=== PATIENT | female | born 1970 | race Caucasian/White ===

== ENCOUNTER 2020-04-14 00:39 | Outpatient (CLI) | payer BC, SELFPAY ==
[2020-04-15 03:00] LABS: SARS-CoV-2 RNA PCR Negative
== END 2020-04-14 00:40 | disposition home or self-care (01) ==
LOC: ANHCOVIDDT 00:39
PROVIDERS: PCP Internal Medicine; Visit Provider Internal Medicine Gastroenterology
DX: Z01.812 Encounter for preprocedural laboratory examination (principal); Z20.828 Contact with and (suspected) exposure to other viral communicable diseases
CPT/HCPCS: 87635; C9803; U0003

== ENCOUNTER 2020-04-16 02:14 | Day surgery (SDC) | payer BC, SELFPAY ==
[2020-04-09 15:17] VITALS: BMI 26.4
[2020-04-16] MEDS: LACTATED RINGERS 1,000 ML 150 ML IV CONT (07:47)
[2020-04-16 07:49] VITALS: BP 126/77; PULSE 65; RESP 16; TEMP 36.3; O2SAT 100; BMI 27.1
--- NOTE | 2020-04-16 07:52 | WPDANESEPPF ---
Anes - Initial Pre Proc Eval Procedure: Operation Date: 04/16/20 08:30 Proposed Procedures p Screening Colonoscopy - Cristobal Laguna MD Date/Time: 04/16/20 07:52 Surgeon: Cristobal Laguna MD Pre Op Diagnosis: neoplasm screening Patient Data Age: 50 Gender: F Height: 5 ft 5 in Weight: 74 kg Last Vital Signs Temp 36.3 C L 04/16/20 07:49 Pulse 65 04/16/20 07:49 Resp 16 04/16/20 07:49 BP 126/77 04/16/20 07:49 Pulse Ox 100 04/16/20 07:49 Allergies Allergy/AdvReac Type Severity Reaction Status Date / Time latex Allergy Unknown Rash Verified 04/16/20 07:25 Penicillins Allergy Unknown Unknown Verified 04/16/20 07:25 Home Medications Medication Instructions Recorded Confirmed Type fluticasone propionate 50 1 spray NASAL DAILY #15.8 ml 12/01/19 04/16/20 Rx mcg/actuation nasal spray,suspension naproxen 375 mg tablet 375 mg PO BID PRN #180 tablet 12/01/19 04/16/20 Rx oxybutynin chloride 5 mg 5 mg PO DAILY #90 tablet 12/01/19 04/16/20 Rx tablet,extended release 24 hr levothyroxine 88 mcg tablet See Rx Instructions .ROUTE 04/13/20 04/16/20 Rx .COMPLEX #90 tablet Patient hx anesthesia problems: none Family hx anesthesia problems: none PMFSH Past Medical History Medical History Endometriosis Hypothyroidism Left knee pain Surgical History Surgical History History of orthopedic surgery Family History Family History Mother Family history of thyroid disease Sibling Family history of type 2 diabetes mellitus Social History Social History Smoking status: Never smoker Alcohol intake: current Alcohol use details: 1 drink/month Substance use: never Substance use type: does not use Living arrangements: with family Gender identity (if verbalized by the patient): Female Anes - Eval Final PreProcedure Day of Procedure 04/16/20 07:52 Patient weight: normal Heart: regular rate and rhythm Lungs: clear to auscultation Airway: Mallampati scale class II Neurological: alert and oriented Last oral intake: >/= 8 hours ASA classification: II Emergent: no Anesthetic plan: proceed Anesthesia type and monitoring: general GIVS and standard monitoring Informed Consent: The patient's anesthetic plan and its attendant risks and benefits were discussed with the patient/family/POA. Questions were solicited and answers provided to the satisfaction of the patient/family/POA.
--- NOTE | 2020-04-16 08:21 | PM.HPGS ---
History of Present Illness History of Present Illness Consent: Risks, benefits, and alternatives have been discussed and questions answered. Patient agrees to proceed with procedure. Chief complaint: neoplasm screening Narrative: Delilah Colbert is a 50 year old female here for first screening colonoscopy. Review of Systems Constitutional: Constitutional: Denies headache(s) and Denies weakness Eyes: Eyes: Denies blurry vision ENT: Reports Normal hearing present, Denies headache(s) and Denies neck pain Cardiovascular: Cardiovascular: Denies chest pain and Denies dyspnea Respiratory: Respiratory: Denies dyspnea Gastrointestinal: Gastrointestinal: Reports no additional gastrointestinal complaints Genitourinary: Genitourinary: Denies dysuria Musculoskeletal: Musculoskeletal: Denies neck pain Integumentary/Breasts: Skin/Breast: Denies dry skin Neurologic: Reports Normal hearing present, Denies headache(s) and Denies weakness Psychiatric: Psychiatric: Denies anxiety Endocrine: Endocrine: Denies change in body appearance Hematologic/Lymphatic: Hematologic/Lymphatic: Denies easy bleeding Allergic/Immunologic: Allergic/Immunologic: Denies urticaria PMF Past Medical History Medical History (Updated 04/16/20 @ 08:21 by Cristobal Laguna MD) Colon cancer screening Endometriosis Hypothyroidism Left knee pain Surgical History Surgical History History of orthopedic surgery Family History Family History Mother Family history of thyroid disease Sibling Family history of type 2 diabetes mellitus Social History Social History Smoking status: Never smoker Alcohol intake: current Alcohol use details: 1 drink/month Substance use: never Substance use type: does not use Living arrangements: with family Gender identity (if verbalized by the patient): Female Meds Home Medications and Allergies Home Medications Medication Instructions Recorded Confirmed Type fluticasone propionate 50 1 spray NASAL DAILY #15.8 ml 12/01/19 04/16/20 Rx mcg/actuation nasal spray,suspension naproxen 375 mg tablet 375 mg PO BID PRN #180 tablet 12/01/19 04/16/20 Rx oxybutynin chloride 5 mg 5 mg PO DAILY #90 tablet 12/01/19 04/16/20 Rx tablet,extended release 24 hr levothyroxine 88 mcg tablet See Rx Instructions .ROUTE 04/13/20 04/16/20 Rx .COMPLEX #90 tablet Allergies Allergy/AdvReac Type Severity Reaction Status Date / Time latex Allergy Unknown Rash Verified 04/16/20 07:25 Penicillins Allergy Unknown Unknown Verified 04/16/20 07:25 Vital Signs Vital Signs - 24 hr 04/16/20 07:49 Temperature 97.4 F L Pulse Rate 65 Respiratory Rate 16 Blood Pressure 126/77 Pulse Oximetry 100 Exam Const: General: comfortable and no acute distress HENMT: General nose exam: Normal nares present Eyes: General: appearance normal, both eyes and all related structures Neck: Neck: no JVD Resp: Auscultation: clear to auscultation bilaterally Cardio: Rate: regular rate Rhythm: regular rhythm GI: Inspection: non-distended GI Palp: Yes Soft to palpation Skin: General skin exam: normal color Neuro: General: gait normal Speech: normal speech Extrem: General: normal to inspection Psych: Mental Status: mental status grossly normal Assessment and Plan Assessment and plan (1) Colon cancer screening: Code(s): Z12.11 - Encounter for screening for malignant neoplasm of colon Status: Acute Assessment and Plan: will proceed with colonoscopy
[2020-04-16 08:44] VITALS: BP 122/78; PULSE 74; RESP 16; O2SAT 100
[2020-04-16 08:54] VITALS: BP 126/73; PULSE 67; RESP 18; O2SAT 100
[2020-04-16 09:04] VITALS: BP 129/83; PULSE 67; RESP 18; O2SAT 100
== END 2020-04-16 09:25 | disposition home or self-care (01) ==
PROVIDERS: PCP Internal Medicine; Visit Provider Internal Medicine Gastroenterology
PROC: 0DJD8ZZ Inspection of Lower Intestinal Tract, Via Natural or Artificial Opening Endoscopic (ICD-10-PCS; CPT 45378; principal; 2020-04-16 08:30)
DX: Z12.11 Encounter for screening for malignant neoplasm of colon (principal); E03.9 Hypothyroidism, unspecified; K64.8 Other hemorrhoids
CPT/HCPCS: 45378; J2704; J7120

== ENCOUNTER 2021-08-30 17:12 | Emergency (ER) | payer OTHER, SELFPAY ==
--- NOTE | ~2021-08-30 | CT_ITS ---
EXAMINATION: CT abdomen pelvis w con EXAM DATE: 08/30/2021 19:38 INDICATION: Upper abdominal pain for 3 weeks nausea and vomiting. TECHNIQUE: Spiral CT of the abdomen and pelvis was performed following intravenous injection of 100 m L Omnipaque 350. Axial, coronal and sagittal images of the abdomen and pelvis were reviewed. The do se-length product (DLP) for this examination was 411.25 mGy-cm. The exposure was tailored according to patient size (auto mA exposure control), and iterative reconstruction (ASIR) was used as additiona l dose reduction technique. Comparison is made to prior examination from 05/10/2019. FINDINGS: Again there is hyperenhancing mass, could be an exophytic fibroid or possibly ovarian in or igin. This measures about 5 cm in size, appears essentially unchanged compared to 2019. There is also a hypodense cystic region in the cervix which could be a large nabothian cysts, but was not present or evidence on prior study, about 2.5 cm. Consider follow-up nonemergent pelvic sonogram if this has not been previously worked up. The liver, spleen, adrenal glands and pancreas are unremarkable. Gallbladder is unremarkable. No bi liary obstruction. Portal and splenic veins are patent. Kidneys enhance symmetrically. There is no hydronephrosis. The bladder is unremarkable. There is no retroperitoneal or pelvic lymphadenopath y. There are surgical changes consistent with appendectomy. There is small sliding gastroesophageal hi atal hernia. There is expected amount of colonic stool. No free intraperitoneal gas. The heart i s normal in size. There are no pericardial or pleural effusions. The lung bases are unremarkable. The bones are unremarkable. IMPRESSION: 1. No acute intra-abdominal findings. 2. Chronic mass right pelvis which could be an exophytic fibroid or less likely ovarian in origin. C ervical cystic region probably nabothian cyst. Follow-up nonemergent pelvic sonogram recommended. Reviewed, dictated and finalized at location G. IMPRESSION: 1. No acute intra-abdominal findings. 2. Chronic mass right pelvis which could be an exophytic fibroid or less likel y ovarian in origin. Cervical cystic region probably nabothian cyst. Follow-up nonemergent pelvic sonogram recommended.
[2021-08-30 17:16] VITALS: BP 149/98; PULSE 83; RESP 16; TEMP 36.6; O2SAT 100
--- NOTE | 2021-08-30 17:31 | ECG_ITS ---
Measurements Intervals Pace Rate: 69 P: 59 MA: 159 QRS: 54 QRSD: 93 T: 13 QT: 410 QTc: 440 Interpretive Statements SINUS RHYTHM NONSPECIFIC ST & T-WAVE ABNORMALITY NONDIAGNOSTIC INFERIOR Q-WAVES ABNORMAL ECG NO PREVIOUS ECG AVAILABLE FOR COMPARISON Electronically Signed On 08-31-2021 13:53:13 CDT by Enio Cade M.D.
--- NOTE | 2021-08-30 17:39 | ED.ABDPAIN ---
HPI - Abdominal Pain General Chief Complaint: Abdominal Pain Stated Complaint: Upper abd pain Time Seen by Provider: 08/30/21 17:19 Source: patient Mode of arrival: ambulatory Limitations: no limitations History of Present Illness HPI narrative: 51-year-old female presents today with complaints of upper abdominal pain, nausea, and vomiting for the last 3 weeks. Patient has seen her primary twice and followed up with GI. Plan for endoscopy in September. Patient saw her primary yesterday who told her to continue the Pepcid because she does not tolerate the PPIs well and added Zofran. Patient states she took Zofran today and her pain is worse. Patient describes the pain as like a knot in the stomach area. Patient states she has lost weight but unsure of how much in the last 3 weeks. Denies diarrhea, constipation, bloody stools, cough, runny nose, sore throat, or sick contacts. Related Data Home Medications Medication Instructions Recorded Confirmed cranberry [id number] coag 250 tablet PO 08/23/21 08/23/21 mg-30 mg-50 million cell tablet magnesium glycinate 100 mg tablet 300 mg PO DAILY tablet 08/23/21 08/23/21 Allergies Allergy/AdvReac Type Severity Reaction Status Date / Time latex Allergy Unknown Rash Verified 08/29/21 14:48 Penicillins Allergy Unknown Unknown Verified 08/29/21 14:48 Review of Systems Review of Systems: CONSTITUTIONAL: Denies fever, chills, or sweats. EYES: Denies visual changes, redness, or discharge. ENT: Denies rhinorrhea, congestion, sore throat, or otalgia. CARDIOVASCULAR: Denies chest pain, palpitations, or edema. RESPIRATORY: Denies cough or dyspnea. GASTROINTESTINAL: Abdominal pain, nausea, and vomiting, Denies diarrhea. GENITOURINARY: Denies dysuria or hematuria. SKIN: Denies rash or itching. MUSCULOSKELETAL: Denies back pain, joint pain, or myalgia. NEUROLOGIC: Denies headache, numbness, dizziness, or weakness. PSYCHIATRIC: Denies anxiety or depression. [facility] Past Medical History Medical History Colon cancer screening Encounter for screening for lipid disorder Endometriosis Hypothyroidism Left knee pain Screening for metabolic disorder Surgical History Surgical History History of orthopedic surgery Family History Family History Mother Family history of thyroid disease Sibling Family history of type 2 diabetes mellitus Social History Social History Alcohol intake: current Alcohol use details: 1 drink/month Substance use: never Substance use type: does not use Gender identity (if verbalized by the patient): Female Exam Const: General: no acute distress and alert Orientation/consciousness: patient oriented x3 HENMT: Head: normal to inspection Eyes: Pupils: Equal, round and reactive pupils present EOM: EOMs intact bilaterally Neck: Neck: normal visual inspection Chest: Chest palpation & inspection: normal inspection of the chest Resp: Effort & Inspection: normal respiratory effort Auscultation: clear to auscultation bilaterally Cardio: Rate: regular rate GI: GI Palp: Yes Tenderness to palpation present (GI) (Epigastric) Auscultation: normal bowel sounds : General: Yes no CVA tenderness Skin: General skin exam: normal color Neuro: General: patient oriented x3 and moves all extremities Extrem: General: normal to inspection Psych: Mental Status: mental status grossly normal Course Course Emergency Course: CT and labs reviewed with patient and . Patient currently feeling the best that she has in a long time. Patient to be discharged with dicyclomine and Compazine. Instructed to follow-up with primary or GI. Patient and in agreement with plan of care. Reevaluation(s) Reevaluation #1: Patient has noted
[2021-08-30 18:35] LABS: Basophils Percent Auto 0.4 % (0.2-1.2); Eosinophils Percent Auto 0.8 % (0-4.4); Hemoglobin 12.4 g/dL (12.0-15.0); Immature Granulocyte Absolute 0.01 K/mm3 (0.00-0.031); Immature Granulocyte Percent A 0.2 % (0-0.5); Lymphocytes Absolute Auto 1.39 K/mm3 (0.9-3.2); Lymphocytes Percent Auto 28.8 % (18.3-44.2); Mean Corpuscular HGB Conc 32.6 g/dl (32-36); Mean Corpuscular Hemoglobin 30.2 pg (26-34); Mean Corpuscular Volume 92.7 fl (80-100); Mean Platelet Volume 9.8 fl (7.4-10.4); Monocytes Absolute Auto 0.4 K/mm3 (0.1-0.6); Monocytes Percent Auto 8.1 % (2.6-8.5); Neutrophils Percent Auto 61.7 % (45.5-73.1); Platelet Count Result 170 k/mm3 (150-375); Red Cell Distribution Width 12.2 % (11.5-14.5); White Blood Count 4.8 K/mm3 (4.5-10.0)
[2021-08-30] MEDS: METOCLOPRAMIDE HCL INJ 10 MG/2 ML VIAL IV PUSH (18:39)
[2021-08-30] MEDS: DICYCLOMINE HCL INJ 20 MG/2 ML VIAL IM (18:39)
[2021-08-30] MEDS: LACTATED RINGERS 1,000 ML 999 ML IV CONT (18:40)
[2021-08-30] MEDS: diphenhydrAMINE HCl INJ 50 MG/ML VIAL 12.5 MG IV PUSH (18:40)
[2021-08-30 18:48] LABS: Add Urine Microscopic? YES; Alanine Aminotransferase 18 U/L (4-35); Albumin Level 3.7 g/dL (3.5-5.1); Alkaline Phosphatase 58 U/L (38-126); Anion Gap 7 mmol/L (8-16); Appearance Urine Clear (Clear); Aspartate Amino Transferase 25 U/L (14-36); Bacteria Urine Trace /hpf; Bilirubin Urine Negative (Negative); Bilirubin,Total 0.5 mg/dL (0.2-1.3); Blood Urea Nitrogen 8 mg/dL (7-17); Blood Urine 2+ (Negative); Calcium 8.5 mg/dL (8.4-10.2); Carbon Dioxide 26 mmol/L (22-30); Chloride 105 mmol/L (98-107); Color Urine Yellow (Yellow); Estimated CRCL calculation 84 ml/min; Estimated Glomerular Filt Rate > 60; Glucose 79 mg/dL (65-110); Glucose Urine UA Negative (Negative); Ketones Urine 1+ mg/dL (Negative); Leukocyte Esterase Ur 1+ LEU/UL (Negative); Lipase 76 U/L (23-300); Mucus Urine Rare /lpf; Nitrate Urine Negative (Negative); Potassium 3.5 mmol/L (3.4-5.0); Protein Urine Negative (Negative); RBC Urine 0-2 /hpf (0-2); Sodium 138 mmol/L (137-145); Specific Grav Ur 1.015 (1.001-1.035); Squamous Epithelial Cell Urine Occasional /hpf (Few); Urobilinogen Urine Negative mg/dL (<2.0)
[2021-08-30 18:56] LABS: Troponin I < 0.012 ng/mL (0.000-0.034)
--- NOTE | 2021-08-30 19:05 | PC.NURSE ---
ASSUMING CARE OF PT.
[2021-08-30 19:57] VITALS: BP 127/82; PULSE 70; RESP 18; O2SAT 100
[2021-08-30 20:38] VITALS: BP 124/65; PULSE 72; RESP 18; O2SAT 100
== END 2021-08-30 20:39 | disposition home or self-care (01) ==
PROVIDERS: Emergency Provider Nurse Practitioner Family; PCP Family Medicine
DX: R10.10 Upper abdominal pain, unspecified (principal); N80.9 Endometriosis, unspecified; E03.9 Hypothyroidism, unspecified; R94.31 Abnormal electrocardiogram [ECG] [EKG]; N94.9 Unspecified condition associated with female genital organs and menstrual cycle
CPT/HCPCS: 36415; 74177; 80053; 81001; 83690; 84484; 85025; 87077; 87086; 87147; 87181; 87186; 93005; 96361; 96372; 96374; 96375; 99284; J0500; J1200; J2765; J7120; Q9967

== ENCOUNTER 2022-07-19 08:15 | Outpatient (CLI) | payer OTHER, SELFPAY ==
[2022-07-19 20:39] LABS: Alanine Aminotransferase 22 U/L (6-35); Albumin Level 3.8 g/dL (3.5-5.1); Alkaline Phosphatase 71 U/L (38-126); Anion Gap 5 mmol/L (8-16); Aspartate Amino Transferase 32 U/L (14-36); Bilirubin,Total 0.5 mg/dL (0.2-1.3); Blood Urea Nitrogen 16 mg/dL (7-17); Calcium 8.4 mg/dL (8.4-10.2); Carbon Dioxide 28 mmol/L (22-30); Chloride 105 mmol/L (98-107); Cholesterol 158 mg/dL (0-200); Estimated Glomerular Filt Rate > 60; Glucose 90 mg/dL (65-110); HDL Direct 46 mg/dL; Potassium 4.5 mmol/L (3.4-5.0); Sodium 138 mmol/L (137-145); Triglycerides 80 mg/dL (<150)
[2022-07-19 20:50] LABS: LDL Cholesterol Direct 69 mg/dL
== END 2022-07-19 08:16 | disposition home or self-care (01) ==
LOC: ANHGOSHLAB 08:17
PROVIDERS: PCP Family Medicine; Visit Provider Family Medicine
DX: E03.9 Hypothyroidism, unspecified (principal); Z13.220 Encounter for screening for lipoid disorders; Z13.228 Encounter for screening for other metabolic disorders
CPT/HCPCS: 36415; 80053; 80061; 84443

== ENCOUNTER 2024-05-30 09:09 | Outpatient (CLI) | payer OTHER, SELFPAY ==
[2024-05-30 18:22] LABS: Alanine Aminotransferase 25 U/L (6-35); Albumin Level 4.1 g/dL (3.5-5.1); Alkaline Phosphatase 84 U/L (38-126); Anion Gap 3 mmol/L (4-12); Aspartate Amino Transferase 39 U/L (14-36); Bilirubin,Total 0.5 mg/dL (0.2-1.3); Blood Urea Nitrogen 15 mg/dL (7-17); Calcium 9.3 mg/dL (8.4-10.2); Carbon Dioxide 30 mmol/L (22-30); Chloride 106 mmol/L (98-107); Cholesterol 175 mg/dL (0-200); Estimated Glomerular Filt Rate > 60; Glucose 84 mg/dL (65-110); HDL Direct 45 mg/dL; Potassium 4.2 mmol/L (3.4-5.0); Sodium 139 mmol/L (137-145); Triglycerides 155 mg/dL (<150)
[2024-05-30 18:33] LABS: LDL Cholesterol Direct 70 mg/dL
[2024-05-30 18:38] LABS: Free T4 Free Thyroxine 1.48 ng/dL (0.78-2.19)
== END 2024-05-30 09:10 | disposition home or self-care (01) ==
LOC: ANHGOSHLAB 09:10
PROVIDERS: PCP Family Medicine; Visit Provider Family Medicine
DX: E03.9 Hypothyroidism, unspecified (principal); Z13.220 Encounter for screening for lipoid disorders; Z13.228 Encounter for screening for other metabolic disorders
CPT/HCPCS: 36415; 80053; 80061; 84439; 84443

== ENCOUNTER 2025-02-17 10:25 | Outpatient (CLI) | payer OTHER, SELFPAY ==
--- OUTSIDE RECORDS SUMMARY | 2025-02-17 12:02 | XMS_ITS | Clinical Summary ---
Author Organization [facility] [employer] Address [address] [place] [address] Care Team Providers Care Winding Inspector And Tester Name Role Phone Unavailable Primary Care Provider Unavailabl e Source Comments [facility] [employer],non-owned Affiliates and Associated Physician Practices is amultiple site organization consisting of ambulatory clinics and hospital sitesin [place], [place], [place]. This disclosure is being madepursuant to the Care Everywhere program and may not contain all information available regarding this patient. Last updated 18.[facility] [employer] Social History Tobacco Use Types Packs/Day Years Used Date Smoking Tobacco: Never Assessed Comments Unknown Sex and Gender Information Value Date Recorded Sex Assigned at Not on file Legal Sex Female 10:27 AM CDT Gender Identity Not on file Sexual Orientation Not on file Plan of Treatment Health Maintenance Due Date Last Done Comments COLOGUARD (AGES 45-75) - COL ON CA SCREENING 1969 COLON MONITORING 1969 COLONOSCOPY - COLON CA SCREENING 1969 CT COLONOGRAPHY - COLON CA SCREENING 1969 Colorectal Cancer Screening 1969 FIT - COLON CA SCREENING 1969 FLEX SIG - COLON CA SCREENING 1969 LIPID TESTING 1969 MAMMOGRAM 1969 HIV SCREENING 02/03/1984 HEPATITIS C SCREENING 01/29/1987 DTAP/TDAP/TD VACCINES (1 - Tdap) 02/03/1988 HEPATITIS B VACCINE (1 of 3 - 19+ 3-dose series) 02/03/1988 PNEUMOCOCCAL VACCINE 50+ (1 of 1 - PCV) 2019 ZOSTER VACCINE (1 of 2) 2019 DEPRESSION SCREENING 06/11/2024 COVID-19 VACCINE (1 - 2023-2 5 season) 2025 INFLUENZA VACCINE (#1) 2025 HIB VACCINE Aged Out No longer eligi ble based on patient's age to complete this topic HPV VACCINE Aged Out No longer eligi ble based on patient's age to complete this topic MENINGOCOCCAL (Group B) VACC INE SHARED DECISION-MAKING Aged Out No longer eligibl e based on patient's age to complete this topic MENINGOCOCCAL GROUPS A/C/Y/W VACCINE Aged Out No longer eligible b ased on patient's age to complete this topic Insurance
--- OUTSIDE RECORDS SUMMARY | 2025-02-17 12:02 | XMS_ITS | Clinical Summary ---
Author Organization [facility] Address [address] [place] [address] Care Team Providers Care Mixing Machine Attendant Name Role Phone Naty Burciaga Primary Care Provider [phone] Tom Trujillo MD Unavailable [phone] Allergies Active Allergy Reactions Criticality Noted Date Comments Latex Rash Medium 12/23/2022 Penicillins Rash Medium Medications Gemtesa 75 mg tablet Take 75 mg by mouth nightly 3 Active famotidine (PEPCID) 20 mg tablet Take 1 tablet (20 mg total) by mouth nightly Active methocarbamoL (ROBAXIN) 500 mg tablet Take 1 tablet (500 mg total) by mouth nightly as needed for muscle spasms 30 tablet 3 Active amLODIPine (NORVASC) 5 mg tablet 4 Active Synthroid 112 mcg tablet Take 1 tablet (112 mcg total) by mouth [facility] before breakfast 4 Active naproxen (NAPROSYN) 500 mg tablet Take 1 tablet (500 mg total) by mouth 2 (two) times a day with meals 60 tablet 5 Active ondansetron (ZOFRAN) 4 mg tablet Take 1 tablet (4 mg total) by mouth every 6 (six) hours as needed for nausea or vomiting 15 tablet 5 Active cranberry 500 mg capsule Take 1 tablet by mouth daily Active oxyCODONE-acetamin ophen (PERCOCET) 5-325 mg per tabletIndications: Pain Take 1-2 tablets by mouth every 6 (six) hours as needed for pain 8 tablet 5 Active ondansetron ODT (ZOFRAN-ODT) 4 mg disintegrating tablet Take 1 tablet (4 mg total) by mouth every 8 (eight) hours as needed for nausea or vomiting 20 tablet 5 Active Active Problems Problem Noted Date Diagnosed Date Right upper quadrant pain 11/06/2024 Assessment & Plan (11/06/2024 4:45 PM CDT): Reports that she began experiencing right upper quadrant discomfort roughly 3 weeks ago. She states that she has constant dull ache in her right upper quadrant that can intensify to a stabbing sensation. States that pain that intense will last roughly 10 sec. Reports that this can happen multiple times throughout the day. Food does not seem to be a trigger. Reports that she has constant abdominal bloating as well as increased belching. No reports of nausea, reflux. Was recently seen in the ED regarding these complaints in which a CT scan was unremarkable. A right upper quadrant ultrasound was completed however results are not available to me at this time. 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 Hypothyroidism 04/16/2013 Overview (09/15/2016): HYPOTHYROIDISM NOS Elevated rheumatoid factor 04/16/2013 Overview (09/15/2016): Rheumatoid factor positive Encounters Date Type Department Care Team Description 12/30/2024 1:30 PM CDT - 12/30/2024 3:15 PM CDT Surgery [facility] [place] [address] [place] [id number] Tom Trujillo MD ROBOTIC ASSISTED LAPAROSCOPIC CHOLECYSTECTOMY WITH INDOCYANINE GREEN 12/30/2024 1:09 PM CDT Anesthesia Event [facility] [place] [address] [place] [phone] Zach Niño DO 12/30/2024 11:25 AM CDT - 12/30/2024 5:30 PM CDT Hospital Encounter [facility] [place] [address] [place] [phone] Tom Trujillo MD Gallbladder sludge Discharge Disposition: Discharge to home or self care 11/25/2024 Orders Only [facility] Gastroenterology at [address] [place] [phone] Toma Rodriguez NP Calculus of gallbladder with cholecystitis without biliary obstruction, unspecified cholecystitis acuity (Primary Dx); Cholecystitis 11/24/2024 Orders Only [facility] Gastroenterology at [address] [place] [phone] Toma Rodriguez NP 11/20/2024 8:44 AM CDT - 11/20/2024 11:59 PM CDT Hospital Encounter [facility] Nuclear Medicine [address] [place] [address] Discharge Disposition: Discharge to home or self care 11/20/2024 8:44 AM CDT - 11/20/2024 11:59 PM CDT Hospital Encounter [facility] Nuclear Medicine [address] [place] [address] Discharge Disposition: Discharge to home or self care 11/20/2024 8:44 AM CDT - 11/20/2024 11:59 PM CDT Hospital Encounter [facility] Nuclear Medicine [address] [place] [address] Right upper quadrant pain Discharge Disposition: Discharge to home or self care from Last 3 Months Surgical History Surgery Date Site/Laterality Comments APPENDECTOMY KNEE ARTHROSCOPY 06/11/2005 - 06/10/2006 Left FOOT SURGERY 06/11/2016 - 06/10/2017 Right bunion surgery FLUORO GUIDED INJECTION SHOULDER LEFT 02/20/2024 Left LAPAROSCOPIC ENDOMETRIOSIS FULGURATION Medical History Medical History Date Comments GERD (gastroesophageal reflux disease) Gastric reflux DDD (degenerative disc disease), cervical Primary osteoarthritis, left shoulder Retrolisthesis of cervical v ertebrae, minimal C5 on C6 02/05/2023 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 Hypothyroidism 04/16/2013 HYPOTHYROIDISM N OS PONV (postoperative nausea and vomiting) Motion sickness Hypertension Overactive bladder Family History Medical History Relation Name Comments Cancer Cousin Cancer; Allergies Mother Allergies; Other Mother Vasculitis; Cancer Mother's Sister Cancer; Diabetes Sister Diabetes mellit us; Relation Name Status Comments Cousin Mother Mother's Sister Sister Social History Tobacco Use Types Packs/Day Years Used Date Smoking Tobacco: Never Smokeless Tobacco: Never Tobacco Cessation:Counseling Given: Not Answered Alcohol Use Standard Drinks/Week Comments Yes 0 (1 standard drink = 0.6 oz pur e alcohol) AUDIT-C Answer Date Recorded Q1: How often do you have a drink containing alc ohol? Monthly or less 12/30/2024 Q2: How many drinks containi ng alcohol do you have on a typical day when you are drinking? 1 or 2 12/30/2024 Q3: How often do you have si x or more drinks on one occasion? Never 12/30/2024 Personal Safety Answer Date Recorded Have you ever been in or are you currently in a harmful physical or emotional relationship or is someone making you feel afraid or unsafe? 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 Not on file Not on file Not on file Obstetrics History Last Filed Vital Signs Vital Sign Reading Time Taken Comments Blood Pressure 101/75 12/30/2024 4:20 PM CDT Pulse 62 12/30/2024 4:20 PM CDT Temperature 36.6 C (97.9 F) 12/30/2024 4:20 PM CDT Respiratory Rate 15 12/30/2024 4:20 PM CDT Oxygen Saturation 96% 12/30/2024 4:20 PM CDT Inhaled Oxygen Concentration - - Weight 73.2 kg (161 lb 4.8 oz) 12/30/2024 11:33 AM CDT Height 165.1 cm (5' 5) 12/30/2024 11:33 AM CDT Body Mass Index 26.84 12/30/2024 11:33 AM CDT Plan of Treatment Health Maintenance Due Date Last Done Comments Breast Cancer Screening-Mammogram 1970 Cervical Cancer Screening 1969 Colon Cancer Screening-Colonoscopy 1969 Depression Screening 1969 Hepatitis C Screening 1969 DTaP/Tdap/Td Vaccine (1 - Tdap) 02/03/1980 Hepatitis B Screening 1987 Regular Well Visit/Exam 18-64 1987 Zoster Vaccine (1 of 2) 2019 Covid-19 Vaccine (3 - 2024-2 6 season) 2025 12/23/2020, 12/02/2020 Influenza Vaccine (#1) 2025 , 03/23/2018 Pneumococcal vaccine <65 Aged Out No longer eligible based on patient's age to complete this topic Procedures Procedure Name Priority Date/Time Associated Diagnosis Comments SURGICAL PATHOLOGY Routine 12/30/2024 1: 53 PM CDT Gallbladder sludge TX AN PROCEDURE PLACEHOLDER Routine 12/30/2024 1:26 PM CDT TX AN ELECTIVE ENDOTRACHEAL AIRWAY Routine 12/30/2024 1:26 PM CDT XI CHOLECYSTECTOMY, MULTIPORT - LAPAROSCOPIC ROBOTIC 12/30/2024 1:09 PM CDT CHOLELITHIASIS ECG 12-LEAD Routine 12/30/2024 12:02 PM CDT NM HEPATOBILIARY IMAGING W PHARMACEUTICAL INTERVENTION Schedule Routine, Read Routine (OP Routine) 11/20/2024 12:03 PM CDT Right upper quadrant pain from Last 3 Months Results * Surgical pathology (12/30/2024 1:53 PM CDT) Tissue (Gallbladder) 12/30/2024 1:53 PM CDT Narrative PATHOLOGY [facility] - 01/01/2025 6:24 PM CDT [facility] Department of Pathology [address] [place] [address] Note to Patients: This report may contain a detailed description of human tissue sent by a health care provider to the laboratory for pathologic evaluation. The content of this report is essential for diagnosis and may provide important critical findings. This information may be unfamiliar to patients to review without a medical professional present. It is advised that the patient review this report in the presence of a health care provider who can answer questions and explain the details. Final Report Patient Name: ANA GARCÍA : 1970 (Age: 54) Gender: F Address: [address] [place] [address] Hospital #: [id number] Service: Surgery Location: Patient Type: [facility] Taken: 12/30/2024 Received: 12/30/2024 Accessioned: 12/30/2024 Reported: 01/01/2025 Physician(s): Toy Richmond DO Diagnosis: Gallbladder, cholecystectomy - Mild chronic cholecystitis - One reactive lymph node Nilo Blue MD Report Electronically Reviewed and Signed Out By Nilo Blue MD 01/01/2025 18:24:40 Specimen(s) Received: A: Gallbladder Microscopic Description: Unless gross-only is specified, the final diagnosis for each specimen is based on a microscopic examination of each tissue sample. [id number] Distribution Clinical History: The patient is a 54-year-old woman with cholelithiasis and gallbladder sludge. Operative procedure: Robotic assisted laparoscopic cholecystectomy. Gross Description Received in formalin, labeled with the patient s identifiers and gallbladder and consists of a 9.0 x 3.0 x 2.8 cm intact gallbladder. The serosal surface is smooth, glistening, and green-tinged with no perforations or exudate grossly identified. The clipped cystic duct measures 0.5 cm in diameter and is inked black. Opening reveals green-yellow, viscous bile and no stones are identified in the lumen or in the specimen container. The mucosal surface is velvety, dark-green and bile stained. The wall thickness averages 0.2 cm. Language Pathologist sections are submitted. Labeled A1[facility]ensia [facility]12/31/2024 10:39 TED [place] Microscopic slide review and interpretation for this case was performed at [facility], Department of Surgical Pathology, [address] [facility] [place] [address], [place] [id number] [place] # [id number] us Tom Trujillo MD LAB PATHOLOGY ORDERABLES Fin al Result PATHOLOGY [facility] * TX AN ELECTIVE ENDOTRACHEAL AIRWAY, TX AN PROCEDURE PLACEHOLDER (12/30/2024 1:26 PM CDT) Narrative Latoya Irene CRNA - 12/30/2024 1:26 PM CDT Latoya Irene CRNA 12/30/2024 1:27 PM Airway Patient location: OR Urgency: elective Indications for airway management: anesthesia Difficult airway: no Staff: Placed by: BOOM CRANE OPERATOR: Latoya Irene CRNA Emergent airway documentation: Risks and benefits discussed: yes Consent obtained: yes Consent given by: patient Airway prep: Preoxygenated: yes Patient position: sniffing Mask difficulty assessment: 2 - vent by mask + OA or adjuvant Spontaneous ventilation during airway: absent Sedation level during airway: deep Final airway details: Final airway type: endotracheal airway Tube type: ETT ETT size: 7.0 mm Cuffed: yes Technique used for successful ETT placement: direct laryngoscopy Devices/Methods used in placement: intubating stylet Insertion site: oral Blade type: Cindy Blade size: 3 Cormack-Lehane (direct): grade I - full view of glottis Cuff volume: 6 mL Cuff inflated with: air ETT to teeth: 20 cm Placement verified by: auscultation and CO2 detection Airway secured with: silk tape Number of attempts: 1 us Zach Niño DO ANESTHESIA ORDERABLES Final R esult * ECG 12 lead (12/30/2024 12:02 PM CDT) Ventricular Rate EKG/Min 72 BPM [facility] Atrial Rate 72 BPM [facility] TX-Interval (MSEC) 152 ms [facility] QRS-Interval (MSEC) 80 ms [facility] QT-Interval (MSEC) 400 ms [facility] QTc 438 ms [facility] P Wishon 62 degrees [facility] R Wishon 55 degrees [facility] T Wishon 21 degrees [facility] Diagnosis Normal sinus rhythm T wave abnormality, consider anterior ischemia Abnormal ECG When compared with ECG of 24-DEC-2022 10:00, T wave inversion now evident in Anterior leads Confirmed by SOFÍA HERNANDES M.D. ([id number]) on 12/31/2024 6:37:32 AM [facility] 12/30/2024 12:0 2 PM CDT 12/31/2024 6:37 AM CDT us Perry Pimentel MD ECG ORDERABLES Final Result [facility] * NM Hepatobiliary Imaging W GBEF (11/20/2024 12:03 PM CDT) Anatomical Region Laterality Modality Body N/A Nuclear Medicine 11/20/2024 12:2 2 PM CDT Narrative 11/20/2024 12:23 PM CDT EXAM DESCRIPTION: NM HEPATOBILIARY IMAGING W PHARMACEUTICAL INTERVENTION REASON FOR STUDY: Cholelithiasis, right upper quadrant pain for 1.5 months with bloating. RADIOPHARMACEUTICAL: 5 mCi Tc-99m mebrofenin via a right hand IV site and 8 oz Ensure Plus or equivalent p.o. COMPARISON: Right upper quadrant ultrasound 10/30/2024. TECHNIQUE: Following the intravenous administration of the radiopharmaceutical, sequential abdominal images were obtained. A region of interest was drawn around the gallbladder with an ejection fraction calculated. FINDINGS: There is prompt, homogenous tracer localization throughout the liver. There is normal visualization of the intrahepatic ducts, common bile duct, and gallbladder. There is normal biliary to bowel transit. Following the oral administration of Ensure Plus, the gallbladder ejection fraction was calculated and was 22 % (normal: greater than 40%, equivocal: 30-40%, and abnormal: less than 30%). IMPRESSION: 1. No evidence of cystic duct obstruction. 2. Low gallbladder ejection fraction, differential diagnosis includes biliary dyskinesia and chronic cholecystitis. THIS IS AN ELECTRONICALLY VERIFIED FINAL REPORT 11/20/2024 12:23 PM - Electronically signed by Adis Youssef M.D. CH T: Report ID: [id number] Reading Location: [id number] Procedure Note Adis Youssef Jr., MD - 11/20/2024 EXAM DESCRIPTION: NM HEPATOBILIARY IMAGING W PHARMACEUTICAL INTERVENTION REASON FOR STUDY: Cholelithiasis, right upper quadrant pain for 1.5 months with bloating. RADIOPHARMACEUTICAL: 5 mCi Tc-99m mebrofenin via a right hand IV siteand 8 oz Ensure Plus or equivalent p.o. COMPARISON: Right upper quadrant ultrasound 10/30/2024. TECHNIQUE: Following the intravenous administration of the radiopharmaceutical, sequential abdominal images were obtained. A regionof interest was drawn around the gallbladder with an ejection fraction calculated. FINDINGS: There is prompt, homogenous tracer localization throughout the liver. There is normal visualization of the intrahepatic ducts, commonbile duct, and gallbladder. There is normal biliary to bowel transit. Following the oral administration of Ensure Plus, the gallbladder ejection fraction was calculated and was 22 % (normal: greater than 40%,equivocal: 30-40%, and abnormal: less than 30%). IMPRESSION: 1. No evidence of cystic duct obstruction. 2. Low gallbladder ejection fraction, differential diagnosis includes biliary dyskinesia and chronic cholecystitis. THIS IS AN ELECTRONICALLY VERIFIED FINAL REPORT 11/20/2024 12:23 PM - Electronically signed by Adis Youssef M.D. T: Report ID: [id number] Reading Location: [id number] Toma Rodriguez NP [facility] [place] PROCEDURES Final Resu lt from Last 3 Months Insurance [facility] AETNA SIGNATURE [facility] [employer] SIGNATURE Advance Directives For more information, please contact: [phone] * Full Code (Latest Code Status on File) Date Activated Date Inactivated Comments 12/23/2022 9:24 PM 12/24/2022 6:18 PM Care Teams Mixing Machine Attendant Relationship Specialty Start Date End Date Naty Burciaga DO [address] [facility] [address] [place] [address] PCP - General Family Medicine 12/17/24 Tom Trujillo MD [facility] [address] Consulting Physician General Surgery 12/30/24
--- OUTSIDE RECORDS SUMMARY | 2025-02-17 12:02 | XMS_ITS | Clinical Summary ---
Author Organization [facility] Address [address] [place] [address] Care Team Providers Care Leasing Agent Name Role Phone Kuldip Caceres MD Primary Care Provider [phone] Allergies Active Allergy Reactions Criticality Noted Date Comments Latex Rash Low 09/24/2018 Penicillins Unknown 09/24/2018 Medications fluticasone propionate (FLONASE) 50 MCG/ACT nasal spray 1 spray by Nasal route daily. 18.2 mL 09/24/2018 Active Social History Tobacco Use Types Packs/Day Years Used Date Smoking Tobacco: Never Smokeless Tobacco: Never Alcohol Use Standard Drinks/Week Comments Yes 0 (1 standard drink = 0.6 oz pur e alcohol) socially Comments No Sex and Gender Information Value Date Recorded Sex Assigned at Not on file Legal Sex Female 4:27 PM CDT Gender Identity Not on file Sexual Orientation Not on file Last Filed Vital Signs Vital Sign Reading Time Taken Comments Blood Pressure 160/105 09/24/2018 4:30 PM CDT Pulse 84 09/24/2018 4:30 PM CDT Temperature 36.3 C (97.4 F) 09/24/2018 4:30 PM CDT Respiratory Rate 16 09/24/2018 4:30 PM CDT Oxygen Saturation 99% 09/24/2018 4:30 PM CDT Inhaled Oxygen Concentration - - Weight 71.9 kg (158 lb 9.6 oz) 09/24/2018 4:30 P M CDT Height 165.1 cm (5' 5) 09/24/2018 4:30 PM CDT Body Mass Index 26.39 09/24/2018 4:30 PM CDT Plan of Treatment Health Maintenance Due Date Last Done Comments Cervical Cancer Screening Pa p Smear (Age 30 to 64) Every 3 Years 1969 Colorectal Cancer Screening Colonoscopy (10 Years) 1969 Annual Physical 02/03/1972 Hepatitis C 1987 DTaP, Tdap and Td Vaccines ( 1 - Tdap) 02/03/1988 Hepatitis B Vaccines (1 of 3 - 19+ 3-dose series) 02/03/1988 Cervical Cancer Screening Pa p with HPV Testing (Age 30 to 64) Every 5 Years 1999 Cervical Cancer Screening with HPV 1999 Mammogram Screening 2009 Pneumococcal Vaccine: 50+ Ye ars (1 of 1 - PCV) 2019 Zoster Vaccines (1 of 2) 2019 COVID-19 Vaccine (1 - 2023-2 5 season) 2025 Meningococcal B Vaccine Aged Out No l onger eligible based on patient's age to complete this topic Meningococcal Vaccine Aged Out No ye juancarlos eligible based on patient's age to complete this topic RSV Immunizations Under 20 Months Aged Out No longer eligible based on patient's age to complete this topic Insurance Care Teams Leasing Agent Relationship Specialty Start Date End Date Kuldip Caceres MD [address] [place] [address] PCP - General INTERNAL MEDICINE 09/24/18
--- OUTSIDE RECORDS SUMMARY | 2025-02-17 12:02 | XMS_ITS | Encounter Summary ---
Author Organization [facility] Address [address] [place], [place] [address] [address] Care Team Providers Care Structural Steel Worker Apprentice Name Role Phone Unavailable Primary Care Provider Unavailabl e Encounter Details Date Type Department Care Team (Late st Contact Info) Description 10/14/2018 Lab Requisition [facility] Care DermPath Lab [address] [facility] [place] [address] Mita Sage MD [address] [facility] [address] [place] [address] Social History Tobacco Use Types Packs/Day Years Used Date Smoking Tobacco: Never Assessed Comments Unknown Sex and Gender Information Value Date Recorded Sex Assigned at Not on file Legal Sex Female 10:27 AM CDT Gender Identity Not on file Sexual Orientation Not on file documented as of this encounter Plan of Treatment Not on file documented as of this encounter Procedures Procedure Name Priority Date/Time Associated Diagnosis Comments DERMATOPATHOLOGY Routine 10/11/2018 12:0 0 AM CDT documented in this encounter Results * DERMATOPATHOLOGY (10/11/2018 12:00 AM CDT) Case Report Dermatopathology Report Case: [id number] Authorizing Provider: Mita Sage MD Collected: 10/11/2018 12:00 AM Pathologist: Darshana Vargas MD Received: 10/14/2018 06:56 AM Specimen: Skin, left lat thigh 9 4:10 PM CDT DERMATOPATHOLOGY LABORATORY Final Diagnosis Specimen A. SKIN, left lat thigh: BENIGN VERRUCOUS KERATOSIS, INFLAMED (L82.1) PRESENT AT MARGIN 9 4:10 PM CDT DERMATOPATHOLOGY LABORATORY at 1610 CDT Clinical History R/O SCC, irritated, non-healing. Check margins. 4:10 PM T DERMATOPATHOLOGY LABORATORY Gross Description Specimen A: Received is one formalin filled container labeled with the patient's name and designated left lat thigh. The specimen consists of a shave measuring [id number]. The margin is inked green. Jar 0. 4:10 PM CDT DERMATOPATHOLOGY LABORATORY Microscopic Description Specimen A. SKIN, left lat thigh: Sections show hyperkeratosis, papillomatosis, hypergranulosis, and acanthosis. Inflammatory cells are present within the dermis. These histological findings can be seen in a verruca vulgaris or a seborrheic keratosis. This lesion is present at the margin of the specimen. 4:10 PM T DERMATOPATHOLOGY LABORATORY Disclaimer An external and internal positive and negative controls are appropriate for the histochemical, immunohistochemical and immunofluorescence stain(s) in this case (if any), except where stated explicitly. The performance characteristics of the stain(s) cited in this report were developed and its performance characteristic determined by the Dermatopathology Laboratory at [facility], directed by Dr. Shana Vargas. These tests need not be, and therefore are not, approved by the [place] Food and Drug Administration. The tests are used for clinical purposes. Billing Codes Specimen Charges Stain Charges 60730 1 4:10 PM CDT DERMATOPATHOLOGY LABORATORY Embedded Images 4:10 PM CDT DERMATOPATHOLOGY LABORATORY Pathology/Cytolog y TISSUE SPECIMEN FROM SKIN / Unknown 10/11/2018 10/14/2018 6:56 AM CDT Mita Sage MD LAB - PATHOLOGY/CYTOLOGY OR DERABLES Final Result DERMATOPATHOLOGY LABORATORY [facility] - Department of Dermatology [address] [place] [address], 5th [place] [address], [facility] [phone] documented in this encounter Visit Diagnoses Not on filedocumented in this encounter
[2025-02-17 13:11] LABS: Hematocrit 41.9 % (37.0-47.0); Hemoglobin 13.5 g/dL (12.0-15.0); Mean Corpuscular HGB Conc 32.2 g/dl (32-36); Mean Corpuscular Hemoglobin 28.8 pg (26-34); Mean Corpuscular Volume 89.5 fl (80-100); Platelet Count Result 222 k/mm3 (150-375); Red Blood Count 4.68 M/mm3 (4.2-5.4); White Blood Count 5.0 K/mm3 (4.5-10.0)
[2025-02-17 13:18] LABS: Alanine Aminotransferase 27 U/L (6-35); Albumin Level 4.1 g/dL (3.5-5.1); Alkaline Phosphatase 88 U/L (38-126); Anion Gap 5 mmol/L (4-12); Aspartate Amino Transferase 62 U/L (14-36); Bilirubin,Total 0.5 mg/dL (0.2-1.3); Blood Urea Nitrogen 10 mg/dL (7-17); Calcium 9.1 mg/dL (8.4-10.2); Carbon Dioxide 30 mmol/L (22-30); Chloride 105 mmol/L (98-107); Cholesterol 153 mg/dL (0-200); Estimated Glomerular Filt Rate > 60; Glucose 100 mg/dL (65-110); HDL Direct 44 mg/dL; Potassium 3.9 mmol/L (3.4-5.0); Sodium 140 mmol/L (137-145); Total Protein 6.9 g/dL (6.3-8.2); Triglycerides 100 mg/dL (<150)
[2025-02-17 13:32] LABS: Free T4 Free Thyroxine 1.43 ng/dL (0.78-2.19)
[2025-02-17 13:53] LABS: Thyroid Stimulating Hormone 0.499 uIU/mL (0.465-4.680)
== END 2025-02-17 10:26 | disposition home or self-care (01) ==
LOC: ANHGOSHLAB 10:26
PROVIDERS: PCP Family Medicine; Visit Provider Family Medicine
DX: E03.9 Hypothyroidism, unspecified (principal); E66.3 Overweight; Z79.899 Other long term (current) drug therapy
CPT/HCPCS: 36415; 80053; 80061; 84439; 84443; 85027

== ENCOUNTER 2025-03-19 07:50 | Outpatient (CLI) | payer OTHER, SELFPAY ==
--- NOTE | 2025-04-07 14:31 | WPDHOMESLEEP ---
Sleep Study - Home Unattended Date of Study: 03/19/25 Ordering Provider: Naty Burciaga DO Interpreting Provider: Kait Lemus DO Home Sleep Study Type: Watch PAT Height: 1.65 m Weight: 72.575 kg Body Mass Index: 26.6 Neck Circumference (inches): 13.5 [place]: 15 Reason for Sleep Study Daytime hypersomnia Sleep History The patient did not complete the sleep history forms. [facility] Past Medical History Medical History Encounter for screening for lipid disorder Screening for metabolic disorder Colon cancer screening Left knee pain Endometriosis Hypothyroidism Surgical History Surgical History History of orthopedic surgery Family History Family History Mother Family history of thyroid disease Sibling Family history of type 2 diabetes mellitus Social History Social History Smoking status: Never smoker Alcohol intake: current Alcohol use details: 1 drink/month Substance use: never Substance use type: does not use Lack of Transportation: No Lack of Food: Never True Current Housing: I Have Housing Concerned About Future Housing: No Difficulty Paying Gas/Electric Bills: No Difficulty Paying for Meds: No Currently Unemployed: No Education: Bachelor's Degree Difficulty w/ Childcare or Family Care: No Living arrangements: with family Gender identity (if verbalized by the patient): Female Medications Home Medications ?Medication ?Instructions ?Recorded ?Confirmed ?Type cranberry [id number] tablet PO 08/23/21 02/17/25 History coagulans 250 mg-30 mg-15 mg tablet (Azo Cranberry Plus Probiotic) famotidine 20 mg tablet 20 mg PO DAILY 07/27/22 02/17/25 History naproxen 375 mg tablet 375 mg PO BID PRN pain #60 tabs 07/27/22 02/17/25 Rx methocarbamol 500 mg tablet 500 mg PO QHS PRN muscle spasm #30 11/25/24 02/17/25 Rx tabs mirabegron 25 mg tablet,extended 25 mg PO DAILY #90 tabs 11/25/24 02/17/25 Rx release 24 hr (Myrbetriq) levothyroxine 112 mcg tablet 112 mcg PO DAILY #90 tabs 02/16/25 02/17/25 Rx lisinopril 10 mg tablet 10 mg PO DAILY #90 tabs 02/17/25 02/17/25 Rx Sleep Procedure The sleep study was completed using [employer] a technically adequate device with seven channels: peripheral arterial tone, actigraphy, body position, snore, respiratory movement, pulse oximetry, sleep staging, and heart rate. Prior to using the device, the patient received verbal and written instructions for its application and was provided with the help desk phone number for additional telephonic instruction with 24-hour availability of qualified personnel to answer questions. The study was scored using CMS guidelines. Sleep Architecture The total recording time is 7 hrs, 50 min. The total sleep time is 6 hrs, 45 min. Sleep latency is 16 minutes. REM latency is 84 minutes. The patient had 10 episodes of waking. Sleep architecture shows 19.0% deep sleep, 49.9% light sleep, and (as % Total Sleep Time) showed NREM (Light 49.9%; Deep 19.0%), and a 31.1% stage REM. The patient spent 42.2% of total sleep time in the supine position. Sleep efficiency was 86.17. Respiratory Analysis The overall AHI (pAHI4 %:) is 5.6. The overall AHI (pAHI 3%:) is 11.8. The central AHI is 0.0. The AHI was 7.9 in NREM and 20.1 in REM sleep. The AHI was 22.1 in Supine and 4.4 in Non-supine sleep. Percent of Omar Arthur respirations is 0.0. Oximetry Data The oxygen desaturation index (ARUNA 4%:) is 3.5. The mean saturation is 95%, and the lowest saturation is 90%. Time spent with saturation < 88% is 0.0 minutes. Snoring Profile Snoring average intensity is 41 dB. The patient snored above 45 decibels for 4.0 minutes, 1.0% of sleep time. Cardiac Profile The average pulse rate is 67 beats per minutes. The lowest pulse rate is 54 bpm. The highest pulse rate reported is 104 bpm. Atrial fibrillation was not detected. Premature beats occur <0.1 per minute. Assessment and Plan Assessment and Plan (1) LILLIANA (obstructive sleep apnea): Code(s): G47.33 - Obstructive sleep apnea (adult) (pediatric) Status: Acute Assessment and Plan: The patient had an overall AHI of 5.6 with desaturation down to 90%. This is consistent with mild sleep apnea. Due to the patient's hypertension, she qualifies for treatment. I recommend that the patient be prescribed AutoPAP 5-15 cm H2O, CPAP mask/filters/tubing and heated humidity. A mandibular advancement device is also an acceptable treatment option. This should be used with all episodes of sleep.? Compliance should be reviewed within 31-90 days of starting therapy for usage greater than 4 hours per night greater than 70% of the nights. The patient should be asked about symptoms such as?excessive daytime sleepiness, quality of sleep, decreased nocturia, increased?mental functioning such as memory, mood, and concentration. Data The data obtained during this sleep study is adequate for interpretation. Certification This sleep study has been reviewed by a board certified sleep medicine physician.
[2025-04-07 16:45] VITALS: BMI 26.6
== END 2025-03-20 13:30 | disposition home or self-care (01) ==
PROVIDERS: PCP Family Medicine; Visit Provider Family Medicine
DX: G47.10 Hypersomnia, unspecified (principal); G47.33 Obstructive sleep apnea (adult) (pediatric)
CPT/HCPCS: 95800